=== PATIENT | female | born 1985 | race Caucasian/White ===

== ENCOUNTER 2018-02-26 07:35 | Emergency (ER) | END 2018-02-26 10:00 | disposition home or self-care (01) ==

== ENCOUNTER 2018-03-01 00:58 | Emergency (ER) | END 2018-03-01 04:27 | disposition home or self-care (01) ==

== ENCOUNTER 2018-10-26 05:38 | Day surgery (SDC) | payer MEDICAID ==
[2018-10-25 12:20] VITALS: Ht 167.6 cm; Wt 77.2 kg
[2018-10-26] VITALS (11 sets, daily range): BP systolic 111–172; BP diastolic 60–74; PULSE 68–100; RESP 15–18
[~2018-10-26] VITALS: Ht 167.6 cm; Wt 77.2 kg
[~2018-10-26 05:38] MED LIST: CEFAZOLIN 2 GM/50 ML (PMX) 50 ML IVPB ONE; CEFU500T45 PO; IBUP-1542 PO; LACTATED RINGER'S 1,000 ML IV SCH; ONDA4TAB14 PO; RANI150T35 PO; SUCR1TAB56 PO
--- NOTE | 2018-10-26 07:19 | PREAC ---
Date/Time of Note Date/Time of Note DATE: 10/26/18 TIME: 07:18 Anesthesia Eval and Record Evaluation Time Pre-Procedure Interview DATE: 10/26/18 TIME: 07:18 Age 33 Sex female NPO: 8 hrs Preoperative diagnosis sterilization Planned procedure laparoscopic tubal ligation Past Medical History Past Medical History: Includes GI: Obesity Surgery & Anesthesia Issues No known issue Meds Anticoagulation: No Beta Bassam within 24 hr: No Reason Beta Bassam not given: Pt. not on B-Bassam Discontinued Scripts Ondansetron (Ondansetron Odt) 4 Mg Tab.rapdis, 4 MG PO Q6H PRN for NAUSEA AND/OR VOMITING, #10 TAB Prov:JOSE L SUH 03/01/18 Ranitidine Hcl* (Zantac*) 150 Mg Tablet, 150 MG PO BID PRN for EPIGASTRIC PAIN, #30 TAB Prov:JOSE L SUH 03/01/18 Sucralfate* (Carafate*) 1 Gm Tab, 1 GM PO QID, #60 TAB Prov:JOSE L SUH 03/01/18 Cefuroxime Axetil* (Cefuroxime Axetil*) 500 Mg Tablet, 500 MG PO BID for 10 Days, #10 TAB Prov:MONSERRAT GARCIA MD 02/26/18 Ibuprofen* (Motrin*) 600 Mg Tab, 600 MG PO Q6, #20 TAB Prov:MONSERRAT GARCIA MD 02/26/18 Current Medications Lactated Ringer's 1,000 ml @ 125 mls/hr Q8H IV Last administered on 10/26/18at 06:43; Admin Dose 125 MLS/HR; Start 10/26/18 at 05:00; Stop 10/26/18 at 12:59 Meds reviewed: Yes Allergies Coded Allergies: No Known Allergy (Unverified , 10/26/18) Allergies Reviewed: Yes Labs/Studies Labs Reviewed: Reviewed by anesthesiologist test: Negative Pre-procedure Exam Last vitals Vital Signs Date Temp Pulse Resp B/P (MAP) Pulse Ox O2 O2 Flow FiO2 Time Delivery Rate 10/26/18 97.5 72 18 111/62 97 Room Air 06:23 (78) Airway: Adequate mouth opening, Adequate thyromental dist Mallampati: Mallampati II Teeth: Normal Lung: Normal Heart: Normal ASA Physical Status ASA physical status: 1 Emergency: None Planned Anesthetic General/MAC: ETT Planned Pain Management Parenteral pain med Pre-operative Attestations Prior to commencing anesthesia and surgery, the patient was re-evaluated, there was verification of: *The patient's identity *The results of appropriate recent lab work and preoperative vital signs *The above evaluation not changing prior to induction *Anesthetic plan, risk benefits, alternative and complications discussed with patient/family; questions answered; patient/family understands, accepts and wishes to proceed. VICKIE KERR October 26, 2018 07:19
[2018-10-26] MEDS ORDERED: PROPOFOL 20 ML ONE (07:22)
[2018-10-26] MEDS ORDERED: ROCURONIUM 50 MG INJ ONE (07:22)
[2018-10-26] MEDS ORDERED: LIDOCAINE 2% (SDV) 5 ML INJ ONE (07:23)
[2018-10-26] MEDS ORDERED: CEFAZOLIN 1 GM INJ ONE (07:38)
[2018-10-26] MEDS ORDERED: DEXAMETHASONE 4 MG/ML 5 ML INJ ONE (07:50)
[2018-10-26] MEDS ORDERED: ONDANSETRON 4 MG INJ ONE (07:51)
[2018-10-26] MEDS ORDERED: BUPIVACAINE 0.5%/EPI (SDV) 30 ML INJ ONE (08:10)
[2018-10-26] MEDS ORDERED: NEOSTIGMINE 3 MG/3 ML SYRINGE ONE (08:33)
[2018-10-26] MEDS ORDERED: GLYCOPYRROLATE 0.4 MG INJ ONE (08:33)
--- NOTE | 2018-10-26 08:49 | PAC ---
Date/Time of Note Date/Time of Note DATE: 10/26/18 TIME: 08:49 Post-Anesthesia Notes Post-Anesthesia Note Last documented vital signs Vital Signs Date Temp Pulse Resp B/P (MAP) Pulse Ox O2 O2 Flow FiO2 Time Delivery Rate 10/26/18 97.5 72 18 111/62 97 Room Air 0848 (78) Activity: WNL Respiratory function: WNL Cardiovascular function: WNL Mental status: Baseline Pain reasonably controlled: Yes Hydration appropriate: Yes Nausea/Vomiting absent: Yes VICKIE KERR October 26, 2018 08:49
--- NOTE | 2018-10-26 08:54 | OPR ---
Date/Time of Note Date/Time of Note DATE: 10/26/18 TIME: 08:52 Operative Report Procedure Date: October 26, 2018 Preoperative Diagnosis Desires permanent sterilization Postoperative Diagnosis Same Operation/Procedure Performed laparoscopic bilateral salpingectomies Surgeon Charlee Mijares MD Director University none Anesthesia Type: general Estimated Blood Loss: minimal Transfusion none Specimen distal segments of both tubes Grafts/Implants none Tubes/Drains none Complications none Pt Condition Post Procedure: stable Disposition: PACU Procedure Description FINDINGS: Normal tubes, ovaries bilaterally. Normal uterus. CONSENT: Please see my preop H and P consent in the office for the consent process. DESCRIPTION OF PROCEDURE: She was taken to operating room and general anesthesia was induced. She was prepped and draped in the usual sterile fashion in dorsal lithotomy position. Surgical time-out was done. Anterior lip of the cervix was grasped using a single-tooth tenaculum, and a HUMI was inserted in normal fashion. The tenaculum was removed. There was no bleeding from the cervix. The patient already had a Márquez catheter as well. Gloves were changed. A 5 mm incision was developed inside the umbilicus. A blunt trocar was inserted in the normal fashion. Intraperitoneal position was confirmed using the laparoscope. Pneumoperitoneum was obtained. The patient was placed in Trendelenburg position. A second trocar was inserted under direct visualization of the laparoscope at the pubic hairline in the midline. Right tube was coagulated and transected 7 cm medial to fimbriated portion of the tube. Right salpingectomy was performed by coagulating and transecting the mesosalpinx while at all times hugging the tube. The tube was removed and sent to pathology. the edges of the mesosalpinx was not bleeding, but for abundance of precaution, I cauterized the edges of the mesosalpinx again. There was no bleeding. Same procedure was done on the contralateral side. All instruments removed under direct visualization of the laparoscope after pneumoperitoneum was released. There was no bleeding. Skin closed using 4-0 Monocryl. Then 10 mL 0.25% Marcaine with epinephrine was injected at the incision sites. HUMI was removed. There was no bleeding from the vagina. Patient tolerated the procedure well. CHARLEE MIJARES MD October 26, 2018 08:54
[2018-10-26] MEDS ORDERED: EPHEDrine 25 MG/5 ML SYG IV PRN (09:00)
[2018-10-26] MEDS ORDERED: KETOROLAC 30 MG INJ IV PRN (09:00)
[2018-10-26] MEDS ORDERED: DIPHENHYDRAMINE 50 MG INJ IV PRN (09:00)
[2018-10-26] MEDS ORDERED: LABETALOL HCL 20MG INJ IV PRN (09:00)
[2018-10-26] MEDS ORDERED: hydrALAzine 20 MG INJ IV PRN (09:00)
[2018-10-26] MEDS ORDERED: METOCLOPRAMIDE 10 MG INJ IV PRN (09:00)
[2018-10-26] MEDS ORDERED: MEPERIDINE 25 MG INJ IV PRN (09:00)
[2018-10-26] MEDS ORDERED: OXYCODONE/ACETAMINOPHEN (5/325) TAB PO PRN ×2 (09:00)
[2018-10-26] MEDS ORDERED: HYDROmorphONE 1 MG/5 ML IV SYRINGE IV PRN ×3 (09:00)
[2018-10-26] MEDS ORDERED: ONDANSETRON 4 MG INJ IV PRN (09:00)
[2018-10-26] MEDS ORDERED: MIDAZOLAM 1 MG/ML 2 ML INJ IV PRN (09:00)
[2018-10-26] MEDS ORDERED: FENTAnyl 50 MCG/ML VIAL IV PRN ×3 (09:00)
[2018-10-26] MEDS ORDERED: ALBUTEROL 0.083% (NEB) 2.5 MG/3 ML AMP HHN PRN (09:00)
--- NOTE | 2018-10-26 09:34 | RADRPT ---
Vent Rate: 74 bpm RR Interval: 812 msec OR Interval: 161 msec QRS Duration: 84 msec QT Interval: 380 msec QTC Interval: 422 msec P-R-T [place]: 39 - 73 - 44 degrees Sinus rhythm...sathish Electronically Signed By: Praful Lazo
== END 2018-10-26 10:10 | disposition home or self-care (01) ==
LOC: SDS 05:38
PROVIDERS: ATTEND Specialist
DX: Z30.2 Encounter for sterilization (principal)
CPT/HCPCS: 58661; 88302; 93005; J0360; J0690; J1100; J2405; J2710; J3010; Z7512; Z7610